=== PATIENT | female | born 1930 | race Caucasian/White ===

== ENCOUNTER 2018-04-28 16:44 | Inpatient (IN) ==
--- NOTE | 2018-04-28 16:49 | Emergency Department Note ---
ED Disposition Clinical Impression: CRI (chronic renal insufficiency), Elevated troponin CHF (congestive heart failure) Qualifiers: Heart failure type: unspecified Heart failure chronicity: acute on chronic Qualified Code(s): I50.9 - Heart failure, unspecified Disposition: Admitted as Observation Condition on Discharge: Good - Critical Care Critical Care Time: No Attestation: On 04/28/18, the high probability of a clinically significant, sudden or life threatening deterioration of the following system(s) required my full and direct attention, intervention and personal management. The time I documented below is in addition to time spent performing reported procedures but includes the following listed in this critical care notation. Medical Decision Making - Medical Records Medical records reviewed: Yes: I reviewed the patient's medical records. - [place] Inquiry Pt receiving controlled substance: No [place] was queried for this patient: No Vital Signs: 04/28/18 16:49 04/28/18 17:14 04/28/18 18:00 Temperature 98.4 F Temperature Source Oral Pulse Rate Pulse Rate [Left Radial] 108 H 111 H 109 H Respiratory Rate 20 20 18 Blood Pressure [Right Arm] 180/96 180/98 Blood Pressure Mean [Right Arm] 124 125 Blood Pressure Source [Right Arm] Automatic Cuff Automatic Cuff Blood Pressure Position [Right Arm] Standing Sitting 02 Sat by Pulse Oximetry 95 96 98 Oxygen Delivery Method Nasal Cannula Room Air Room Air Oxygen Flow Rate (LPM) 2 04/28/18 18:12 04/28/18 18:18 04/28/18 18:19 Temperature Temperature Source Pulse Rate 110 H 107 H Pulse Rate [Left Radial] Respiratory Rate Blood Pressure [Right Arm] 183/87 Blood Pressure Mean [Right Arm] 119 Blood Pressure Source [Right Arm] Automatic Cuff Blood Pressure Position [Right Arm] Sitting 02 Sat by Pulse Oximetry Oxygen Delivery Method Oxygen Flow Rate (LPM) 04/28/18 18:30 04/28/18 18:58 Temperature Temperature Source Pulse Rate Pulse Rate [Left Radial] 109 H 109 H Respiratory Rate 18 20 Blood Pressure [Right Arm] 177/81 177/81 Blood Pressure Mean [Right Arm] 113 113 Blood Pressure Source [Right Arm] Automatic Cuff Automatic Cuff Blood Pressure Position [Right Arm] Sitting Sitting 02 Sat by Pulse Oximetry 96 97 Oxygen Delivery Method Nasal Cannula Nasal Cannula Oxygen Flow Rate (LPM) 2 2 - Lab Data Lab results reviewed: Yes: I reviewed the patient's lab results. Lab Results 04/28/18 17:43: WBC 6.3, RBC 3.93 L D, Hgb 11.3 L, Hct 36.7 L, MCV 93.2, MCH 28.7, MCHC 30.8 L, RDW 15.2, Plt Count 205, MPV 7.4, Neut % (Auto) 73.7, Lymph % (Auto) 14.4, [place] % (Auto) 5.2, Eos % (Auto) 6.2, Baso % (Auto) 0.5, Neut # ( Auto) 4.7, Lymph # (Auto) 0.9, [place] # (Auto) 0.3, Eos # (Auto) 0.4, Baso # (Auto ) 0.0 04/28/18 17:43: Sodium 142, Potassium 5.4 H, Chloride 107, Carbon Dioxide 22, Anion Gap 18.4 H, BUN 70 H, Creatinine 6.21 H, Estimated Creat Clear 8, Estimated GFR 6 L*, Est GFR ( Amer) 8 L*, Glucose 214 H, Calcium 8.9, Troponin I 1.42 H 04/28/18 17:43: Lactic Acid 0.7 Result diagrams: 04/28/18 17:43 04/28/18 17:43 Orders (Tests/Meds): ED MEDICATIONS Generic Name Dose Route Start Last Admin Trade Name Freq PRN Reason Stop Dose Admin Calcium Gluconate 1,000 mg/ 35 mls @ 100 mls/hr 04/28/18 19:08 Sodium Chloride IV 04/28/18 19:28 ONCE ONE Sodium Polystyrene Sulfonate 15 gm 04/28/18 21:00 Kayexalate 15gm/60ml Bottle PO 05/28/18 20:59 BID ITALO Discontinued Medications Generic Name Dose Route Start Last Admin Trade Name Freq PRN Reason Stop Dose Admin Aspirin 325 mg 04/28/18 18:30 04/28/18 18:48 Aspirin 325mg Tablet PO 04/28/18 18:31 325 mg ONCE ONE Administration Methylprednisolone Sodium Succinate 125 mg 04/28/18 17:27 04/28/18 17:33 Solu-Medrol 125mg/2ml Vial IV 04/28/18 17:28 125 mg ONCE ONE Administration ORDERS Category Date Time Status XR chest portable Stat Exams 04/28/18 17:10 Taken Troponin I Stat Lab 04/28/18 17:43 Ordered Blood Culture Stat Micro 04/28/18 17:43 Received ECG Request by /Narcisa Stat Y 04/28/18 17:10 Ordered - Radiology Data #1 Image(s): Chest Image Reviewed: Yes I reviewed the patient's radiology image Preliminary Findings: Abnormal (acute CHF; CM) - ECG Data Tracing #1 I reviewed this ECG and interpreted as documented below: ECG initial impression date: 04/28/18 ECG initial impression time: 17:55 ECG normal with no acute: arrhythmias, ischemia, conduction abnormalities, chamber hypertrophy Normal Sinus Rhythm: Yes Arrhythmias present: sinus tach - Physician Consults Physician Consulted: Cardiology instructional services librarian Time: 18:25 (; info relayed to Dr. Cabrera who recommends admission and will follow) Reason -: Cardiology Eval/Care Additional Consult: Dr. Handy Time: 18:31 Reason -: Admission Additional Consult: Dr. Handy Time: 19:09 (reviewed renal function w Dr Handy; states hospice patient due to CRI ok to give calcium and kayexalate now and hold Lasix) Reason -: Pt condition - Reevaluation(s) Time: 18:26 (feeling better s/p duoneb) Resp/SOB HPI - General Chief Complaint: Shortness of Breath/Dyspnea Stated Complaint: SoA Time Seen by Provider: 04/28/18 16:52 Mode of Arrival: Wheelchair Source of Information: Patient Limitations: No Limitations - History of Present Illness Pt with hx CHF, hx blood transfusions for chronic anemia, became increasingly SOB during transfusion today. She states she has had a dry cough for the last several days, no chest pain, no palpitations, no leg pain. She arrives a little SOB with some wheezing. Transfusion RN states patient had Lasix IV [facility] and has not yet had any UOP but used a Depends. She last had a neb at the [facility] this AM. Complaint: shortness of breath Context: other Severity: mild Consistency/Duration: constant Relieving factors: oxygen Exacerbating factors: lying flat, exertion Known history of: congestive heart failure Associated symptoms: denies other symptoms Treatment prior to arrival: oxygen, other - Related Data Home Medications Medication Instructions Recorded Confirmed Acetaminophen [Acetaminophen 325mg 650 mg PO Q6HP PRN 11/21/17 04/28/18 tab] Amlodipine Besylate [Norvasc 2.5mg 5 mg PO BID 11/21/17 04/28/18 tablet] Atorvastatin Calcium [Atorvastatin 80 mg PO HS 11/21/17 04/28/18 80mg Tab] Benzonatate [Tessalon Perle 100mg 200 mg PO Q6HP PRN 11/21/17 04/28/18 Cap] Bisacodyl [Dulcolax 10mg Supp] 10 mg RC DAILYP PRN 11/21/17 04/28/18 Docusate Sodium [Colace] 100 mg PO BID 11/21/17 04/28/18 Doxazosin Mesylate [Doxazosin 1mg 1 mg PO DAILY 11/21/17 04/28/18 Tab] Doxepin HCl [[place]inequan 25mg capsule] 25 mg PO HS 11/21/17 04/28/18 Furosemide [Lasix 40mg tab] 40 mg PO QODHS 11/21/17 04/28/18 Hydralazine HCl [Hydralazine HCl 25 mg PO TID 11/21/17 04/28/18 25mg Tablet] Hydrocortisone Acetate [Anusol HC 30 mg RC TIDP PRN 11/21/17 04/28/18 30mg Supp] Insulin Aspart [Novolog] 100 unit SQ ACHS 11/21/17 04/28/18 Ipratropium/Albuterol Sulfate 3 ml IH QID 11/21/17 04/28/18 [Albut-Ipratropium 2.5mg-0.5mg/3 ml] Isosorbide Dinitrate [Isordil] 40 mg PO BID 11/21/17 04/28/18 Levothyroxine Sodium 25 mcg PO DAILY 11/21/17 04/28/18 [Levothyroxine 25mcg (0.025mg) Tab] Magnesium Hydroxide [Milk of 400 mg PO DAILYP PRN 11/21/17 04/28/18 Magnesia 30mL Udc] Metoprolol [place]/Hydrochlorothiaz 25 mg PO BID 11/21/17 04/28/18 [Metoprolol ER-Hctz 50-12.5 mg] Multivitamin/Iron/Folic Acid 1 each PO DAILY 11/21/17 04/28/18 [Centrum Complete Multivit Tab] Ondansetron HCl [Zofran 4mg Tab] 4 mg PO Q8HP PRN 11/21/17 04/28/18 Oxycodone HCl [OxyIR 5mg tablet] 2.5 mg PO Q6HP PRN 11/21/17 04/28/18 Pantoprazole Sodium [Protonix 40mg 40 mg PO DAILY 11/21/17 04/28/18 tablet] Pregabalin [Pregabalin 50mg 50 mg PO HS 11/21/17 04/28/18 Capsule] Venlafaxine HCl [Effexor Xr] 150 mg PO HS 11/21/17 04/28/18 cloNIDine HCl [Catapres] 0.1 mg PO TID 11/21/17 04/28/18 guaiFENesin [Robitussin 200mg/10mL 200 mg PO Q4HP PRN 11/21/17 04/28/18 Syrup Udc] metOLazone [metOLazone 2.5mg 2.5 mg PO QODHS 11/21/17 04/28/18 Tablet] Allergies Allergy/AdvReac Type Severity Reaction Status Date / Time Iodinated Contrast Media - Allergy Intermediate I-HIVES Verified 01/30/18 09:51 Oral and [Iodinated Contrast Media - IV Dye] meclizine Allergy Intermediate I-HIVES Verified 01/30/18 09:51 acarbose [From PRECOSE] Allergy Unknown Verified 01/30/18 09:51 ciprofloxacin [From CIPRO] Allergy Unknown Verified 01/30/18 09:51 codeine [CODEINE] Allergy Unknown Verified 01/30/18 09:51 fesoterodine [From Toviaz] Allergy Unknown DRY MOUTH Verified 01/30/18 09:51 nylidrin Allergy Unknown Verified 01/30/18 09:51 penicillin G Allergy Unknown Verified 01/30/18 09:51 Penicillins Allergy Unknown Verified 01/30/18 09:51 phenyltoloxamine Allergy Unknown Verified 01/30/18 09:51 [From STAFLEX] sulfamethoxazole Allergy Unknown Verified 01/30/18 09:51 [From BACTRIM] tramadol [From ULTRAM] Allergy Unknown Verified 01/30/18 09:51 trimethoprim [From BACTRIM] Allergy Unknown Verified 01/30/18 09:51 [facility] History I have reviewed the patient's past medical history: Yes Medical History: Reports:: Congestive Heart Failure, Diabetes Mellitus Type 2 Denies:: Cancer, Diabetes Mellitus Type 1, MRSA Other Medical History: Reports: Anemia Amputation: No - Social History Smoking Status: Never smoker Alcohol Intake: never ROS Obtained: Yes All systems reviewed & no additional complaints Physical Exam - General General appearance: alert, in no apparent distress - Head Head exam: atraumatic, normocephalic - Eye Eye exam: Present: normal appearance, PERRL - ENT ENT exam: Present: normal exam, normal oropharynx - Neck Neck exam: Present: normal inspection, full ROM - Chest Chest inspection: Present: normal inspection, symmetric chest wall rise. Absent : tenderness - Respiratory Respiratory exam: Present: normal lung sounds bilaterally, respiratory distress , wheezes, other (tachypneic, mild wheezing) - Cardiovascular Cardiovascular exam: Present: regular rate, normal rhythm. Absent: JVD - Abdominal Exam Abdominal exam: Present: soft, normal bowel sounds. Absent: distention, tenderness, guarding - Extremities Exam Extremities exam: Present: normal inspection, full ROM, normal capillary refill. Absent: joint swelling, calf tenderness - Back Exam Back exam: Present: full ROM - Neurological Exam Neurological exam: Present: alert, oriented X3, CN II-XII intact. Absent: motor sensory deficit - Psychiatric Psychiatric exam: Present: normal affect, normal mood - Skin Skin exam: Present: warm, dry, intact, pallor - Lymphatic Lymphatic Findings: no adenopathy
[2018-04-28 17:56] LABS: Basophils % 0.5 % (0.1-2.0); Eosinophils # 0.4 K/mm3 (0.0-0.4); Eosinophils % 6.2 % (0.1-12.0); Hematocrit 36.7 % (37.0-47.0); Hemoglobin 11.3 g/dL (12.2-16.2); Lymphocytes # 0.9 K/mm3 (0.7-4.5); Lymphocytes % 14.4 K/mm3 (10-50); Mean Corpuscular HGB Conc 30.8 g/dL (31.8-35.4); Mean Corpuscular Hemoglobin 28.7 pg (27.0-31.2); Mean Corpuscular Volume 93.2 fl (81-99); Mean Platelet Volume 7.4 fl (7.4-10.4); Monocytes # 0.3 K/mm3 (0.1-1.0); Monocytes % 5.2 % (1.7-9.3); Neutrophils # 4.7 K/mm3 (1.8-7.8); Neutrophils % 73.7 % (37.0-80.0); Platelet Count 205 K/mm3 (142-424); Red Blood Count 3.93 M/mm3 (4.20-5.40); Red Cell Distribution Width 15.2 % (11.5-17.5); White Blood Count 6.3 K/mm3 (4.8-10.8)
[2018-04-28 18:23] LABS: Anion Gap 18.4 mEq/L (5-15); Calcium 8.9 mg/dL (8.5-10.1); Potassium 5.4 mmoL/L (3.5-5.1)
[2018-04-28 20:07] LABS: Microscopic, Urine URINE MICROSCOPIC (MICROSCOPIC)
[2018-04-28 20:10] LABS: Appearance,Urine CLEAR (Clear); Bilirubin,Urine Negative (Negative); Blood, Urine Negative (Negative); Color,Urine YELLOW (Yellow); Glucose,Urine (UA) Negative (Negative); Ketones,Urine Negative (Negative); Leukocyte Esterase,Urine Negative (Negative); Protein,Urine 2+ (Negative); Specific Gravity, Urine 1.015 (1.005-1.030); Urobilinogen,Urine 0.2 EU/dl (0.2)
[2018-04-28 21:03] LABS: RBC,Urine Occasional #/hpf (0-3); Squamous Epithelial Cell,Urine Occasional #/hpf (0-5)
[2018-04-29 06:15] LABS: Eosinophils % 0.7 % (0.1-12.0); Hematocrit 31.3 % (37.0-47.0); Lymphocytes # 0.3 K/mm3 (0.7-4.5); Lymphocytes % 8.7 K/mm3 (10-50); Mean Corpuscular HGB Conc 30.9 g/dL (31.8-35.4); Mean Corpuscular Hemoglobin 28.7 pg (27.0-31.2); Mean Platelet Volume 8.1 fl (7.4-10.4); Monocytes # 0.1 K/mm3 (0.1-1.0); Monocytes % 2.4 % (1.7-9.3); Neutrophils # 2.9 K/mm3 (1.8-7.8); Neutrophils % 88.1 % (37.0-80.0); Platelet Count 158 K/mm3 (142-424); Red Blood Count 3.37 M/mm3 (4.20-5.40); Red Cell Distribution Width 15.5 % (11.5-17.5); White Blood Count 3.3 K/mm3 (4.8-10.8)
[2018-04-29 06:18] LABS: Anion Gap 15.7 mEq/L (5-15); Calcium 8.6 mg/dL (8.5-10.1); Potassium 4.7 mmoL/L (3.5-5.1)
[2018-04-29 06:24] LABS: Hemoglobin 9.7 g/dL (12.2-16.2)
--- NOTE | 2018-04-29 08:32 | Pharmacy Consult Notes ---
[facility] Pharmacy VTE Monitoring - Patient Demographics Admission date: 04/29/18 Report Date: 04/29/18 Time: 08:32 Allergies/Adverse Reactions: Patient Allergies Iodinated Contrast Media - Oral and [Iodinated Contrast Media - IV Dye] Allergy (Intermediate, Verified 01/30/18 09:51) I-HIVES meclizine Allergy (Intermediate, Verified 01/30/18 09:51) I-HIVES acarbose [From PRECOSE] Allergy (Unknown, Verified 01/30/18 09:51) ciprofloxacin [From CIPRO] Allergy (Unknown, Verified 01/30/18 09:51) codeine [CODEINE] Allergy (Unknown, Verified 01/30/18 09:51) fesoterodine [From Toviaz] Allergy (Unknown, Verified 01/30/18 09:51) DRY MOUTH nylidrin Allergy (Unknown, Verified 01/30/18 09:51) penicillin G Allergy (Unknown, Verified 01/30/18 09:51) Penicillins Allergy (Unknown, Verified 01/30/18 09:51) phenyltoloxamine [From STAFLEX] Allergy (Unknown, Verified 01/30/18 09:51) sulfamethoxazole [From BACTRIM] Allergy (Unknown, Verified 01/30/18 09:51) tramadol [From ULTRAM] Allergy (Unknown, Verified 01/30/18 09:51) trimethoprim [From BACTRIM] Allergy (Unknown, Verified 01/30/18 09:51) Height: 1.68 m Weight: 70.76 kg Patient Problems: Current Active Problems CHF (congestive heart failure) (Acute) CRI (chronic renal insufficiency) (Acute) Elevated troponin (Acute) - VTE Risk Labs: VTE Related Lab Results Hgb 9.7 g/dL (12.2-16.2) L D 04/29/18 06:05 Hct 31.3 % (37.0-47.0) L 04/29/18 06:05 Plt Count 158 K/mm3 (142-424) 04/29/18 06:05 BUN 76 mg/dL (7-18) H 04/29/18 06:05 Creatinine 6.29 mg/dL (0.55-1.02) H 04/29/18 06:05 Estimated Creat Clear 7 mL/min (0-300) 04/29/18 06:05 Was VTE Risk Assessment Performed: Yes VTE Risk Level: Low Risk Clinical Trial Participant: No - Prophylaxis VTE Prophylaxis Ordered?: Yes Types of VTE Prophylaxis: TEDS Knee High
--- NOTE | 2018-04-29 08:34 | History & Physical Report ---
*Admission Date: 04/28/18 <Monique Hannon - 04/29/18 08:41> *Chief complaint: shortness of breath <Monique Hannon - 04/29/18 08:41> *History of present illness: Further important to her history is that she is enrolled in Hospice due to end- stage renal failure which is the basis of her chronic anemia. Her most recent Hgb at [facility] was 7.2 and she requested a blood transfusion but she was getting weak and not getting around very well. <Joe Handy - 04/29/18 09:23> Ms. Espinoza is an 87yo female patient of [facility] with a hx of CHF, blood transfusions for chronic anemia, DM, HTN, HLP, and GERD who became increasingly SOB during a transfusion yesterday. She told the ER physician she had had a dry cough for the last several days, no chest pain, no palpitations, no leg pain. She arrived in the ER a little SOB with some wheezing. 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 She had a neb at the [place] before arrival to the ER yesterday. Today the patient is very fatigued and slightly confused. She denies any pain. She states she is no longer short of breath. She does say she is tired. <Monique Hannon - 04/29/18 08:41> [facility] History Medical History: Reports:: Congestive Heart Failure, Diabetes Mellitus Type 2, Gastroesophageal Reflux Disease(GERD), Hyperlipidemia, Hypertension Denies:: Cancer, Diabetes Mellitus Type 1, MRSA <Monique Hannon 04/29/18 08:41> Other Medical History: Reports: Anemia, Arthritis <Monique Hannon 04/29/18 08 :41> Laterality Cases: Bilateral: Cataract <Monique Hannon 04/29/18 08:41> Other Surgeries: Yes: Appendectomy, Cardiac Catheterization, Cholecystectomy, Colonoscopy, Hysterectomy-Total <Monique Hannon 04/29/18 08:41> Amputation: No <Monique Hannon 04/29/18 08:41> Fractures: No <Monique Hannon 04/29/18 08:41> - *Social History Educational Level: Attended High School <Monique Hannon 04/29/18 08:41> Smoking Status: Never smoker <RiddhiMonique Manjeet 04/29/18 08:41> Alcohol Intake: never <RiddhiMonique 04/29/18 08:41> Occupational Status: retired <Monique Hannon 04/29/18 08:41> Housing: [facility] <DrumaeMonique 04/29/18 08:41> - Psychiatric History Expresses thoughts of harming self/others: None <Monique Hannon 04/29/18 08: 41> Suicide Plan Description: No Plan <RiddhiMonique 04/29/18 08:41> *Family Hx:: Anemia, Cancer, Hypertension <Monique Hannon 04/29/18 08:41> Review of Systems - Constitutional Reports fatigue, Reports weakness <Monique Hannon 04/29/18 08:41> - Eyes Denies blurry vision, Denies double vision <Monique Hannon 04/29/18 08:41> - ENT Denies nasal congestion, Denies sore throat <Monique Hannon 04/29/18 08:41> - *Cardiovascular Denies chest pain, Denies shortness of breath <Monique Hannon 04/29/18 08:41> - *Respiratory Reports cough, Denies shortness of breath <Monique Hannon 04/29/18 08:41> - *Gastrointestinal Denies abdominal pain, Denies loose stools, Denies nausea, Denies vomiting < Monique Hannon 04/29/18 08:41> - *Genitourinary Denies difficulty urinating, Denies painful urination <Monique Hannon 08:41> - *Musculoskeletal Denies joint pain <Monique Hannon 04/29/18 08:41> - *Neurologic Reports weakness, Denies headache(s) <Monique Hannon 04/29/18 08:41> Meds Home Medications Medication Instructions Recorded Confirmed Type Acetaminophen [Acetaminophen 325mg 650 mg PO Q4HP PRN 11/21/17 04/29/18 History tab] Atorvastatin Calcium [Atorvastatin 80 mg PO HS 11/21/17 04/29/18 History 80mg Tab] Benzonatate [Tessalon Perle 100mg 200 mg PO Q6HP PRN 11/21/17 04/29/18 History Cap] Bisacodyl [Dulcolax 10mg Supp] 10 mg RC DAILYP PRN 11/21/17 04/29/18 History Docusate Sodium [Colace] 100 mg PO BID 11/21/17 04/29/18 History Doxazosin Mesylate [Doxazosin 1mg 1 mg PO DAILY 11/21/17 04/29/18 History Tab] Doxepin HCl [Sinequan 25mg capsule] 25 mg PO HS 11/21/17 04/29/18 History Hydralazine HCl [Hydralazine HCl 25 mg PO TID 11/21/17 04/29/18 History 25mg Tablet] Hydrocortisone Acetate [Anusol HC 30 mg RC TIDP PRN 11/21/17 04/29/18 History 30mg Supp] Insulin Aspart [Novolog] 0 unit SQ AC 11/21/17 04/29/18 History Isosorbide Dinitrate [Isordil] 40 mg PO BID 11/21/17 04/29/18 History Levothyroxine Sodium 25 mcg PO DAILY 11/21/17 04/29/18 History [Levothyroxine 25mcg (0.025mg) Tab] Multivitamin/Iron/Folic Acid 1 each PO DAILY 11/21/17 04/29/18 History [Centrum Complete Multivit Tab] Ondansetron HCl [Zofran 4mg Tab] 4 mg PO TIDP PRN 11/21/17 04/29/18 History Oxycodone HCl [OxyIR 5mg tablet] 2.5 mg PO Q6HP PRN 11/21/17 04/29/18 History Pantoprazole Sodium [Protonix 40mg 40 mg PO DAILY 11/21/17 04/29/18 History tablet] Pregabalin [Pregabalin 50mg 50 mg PO HS 11/21/17 04/29/18 History Capsule] cloNIDine HCl [Catapres] 0.1 mg PO TID 11/21/17 04/29/18 History guaiFENesin [Robitussin 200mg/10mL 200 mg PO Q4HP PRN 11/21/17 04/29/18 History Syrup Udc] metOLazone [metOLazone 2.5mg 2.5 mg PO QODHS 11/21/17 04/29/18 History Tablet] Amlodipine Besylate [Norvasc 5mg 5 mg PO BID 04/29/18 04/29/18 History tablet] Carboxymethylcellulose Sodium 1 drop OP Q2HP PRN 04/29/18 04/29/18 History [Thera Tears] Dextrose [Glutose 15] 37.5 gm PO DAILYP PRN 04/29/18 04/29/18 History Furosemide [Lasix 20mg tab] 20 mg PO Q48H 04/29/18 04/29/18 History Insulin Degludec [Tresiba 6 unit SQ DAILY 04/29/18 04/29/18 History Flextouch U-200] Ipratropium/Albuterol Sulfate 3 ml IH TID 04/29/18 04/29/18 History [Iprat-Albut 0.5-3(2.5) mg/3 ml] Lactulose [Lactulose 10gm/15ml 30 ml PO DAILY 04/29/18 04/29/18 History Oral Soln] Magnesium Hydroxide [Milk of 400 mg PO DAILYP PRN 04/29/18 04/29/18 History Magnesia] Metoprolol Succinate 25 mg PO BID 04/29/18 04/29/18 History Venlafaxine HCl [Effexor XR 75mg 75 mg PO HS 04/29/18 04/29/18 History capsule] hydrOXYzine HCl [Hydroxyzine HCl] 10 mg PO Q6HP PRN 04/29/18 04/29/18 History <Joe Handy - 04/29/18 09:23> Allergies Allergy/AdvReac Type Severity Reaction Status Date / Time Iodinated Contrast Media - Allergy Intermediate I-HIVES Verified 01/30/18 09:51 Oral and [Iodinated Contrast Media - IV Dye] meclizine Allergy Intermediate I-HIVES Verified 01/30/18 09:51 acarbose [From PRECOSE] Allergy Unknown Verified 01/30/18 09:51 ciprofloxacin [From CIPRO] Allergy Unknown Verified 01/30/18 09:51 codeine [CODEINE] Allergy Unknown Verified 01/30/18 09:51 fesoterodine [From Toviaz] Allergy Unknown DRY MOUTH Verified 01/30/18 09:51 nylidrin Allergy Unknown Verified 01/30/18 09:51 penicillin G Allergy Unknown Verified 01/30/18 09:51 Penicillins Allergy Unknown Verified 01/30/18 09:51 phenyltoloxamine Allergy Unknown Verified 01/30/18 09:51 [From STAFLEX] sulfamethoxazole Allergy Unknown Verified 01/30/18 09:51 [From BACTRIM] tramadol [From ULTRAM] Allergy Unknown Verified 01/30/18 09:51 trimethoprim [From BACTRIM] Allergy Unknown Verified 01/30/18 09:51 <OleJoe Jose R - 04/29/18 09:23> Exam Vital signs and Labs for Last 24 Hours: Temp Pulse Resp BP Pulse Ox 98.7 F 110 H 20 130/60 96 04/29/18 07:47 04/29/18 08:00 04/29/18 07:47 04/29/18 07:47 04/29/18 07:47 Laboratory Results - last 24 hr 04/28/18 17:00: Urine Color Yellow, Urine Appearance Clear, Urine pH 7.0, Ur Specific [place] 1.015, Urine Protein 2+, Urine Glucose (UA) Negative, Urine Ketones Negative, Urine Blood Negative, Urine Nitrate Negative, Urine Bilirubin Negative, Urine Urobilinogen 0.2, Ur Leukocyte Esterase Negative, Urine RBC Occasional, Urine WBC None, Ur Squamous Epith Cells Occasional, Urine Bacteria None 04/28/18 17:43: WBC 6.3, RBC 3.93 L D, Hgb 11.3 L, Hct 36.7 L, MCV 93.2, MCH 28.7, MCHC 30.8 L, RDW 15.2, Plt Count 205, MPV 7.4, Neut % (Auto) 73.7, Lymph % (Auto) 14.4, [place] % (Auto) 5.2, Eos % (Auto) 6.2, Baso % (Auto) 0.5, Neut # ( Auto) 4.7, Lymph # (Auto) 0.9, [place] # (Auto) 0.3, Eos # (Auto) 0.4, Baso # (Auto ) 0.0 04/28/18 17:43: Sodium 142, Potassium 5.4 H, Chloride 107, Carbon Dioxide 22, Anion Gap 18.4 H, BUN 70 H, Creatinine 6.21 H, Estimated Creat Clear 8, Estimated GFR 6 L*, Est GFR ( Amer) 8 L*, Glucose 214 H, Calcium 8.9, Troponin I 1.42 H 04/28/18 17:43: Lactic Acid 0.7 04/28/18 19:59: Troponin I 1.31 H 04/28/18 21:34: POC Glucose 231 H 04/28/18 22:57: Troponin I 1.03 H 04/29/18 04:52: POC Glucose 255 H 04/29/18 06:05: WBC 3.3 L D, RBC 3.37 L, Hgb 9.7 L D, Hct 31.3 L, MCV 93.0, MCH 28.7, MCHC 30.9 L, RDW 15.5, Plt Count 158, MPV 8.1, Neut % (Auto) 88.1 H, Lymph % (Auto) 8.7 L, [place] % (Auto) 2.4, Eos % (Auto) 0.7, Baso % (Auto) 0.0 L, Neut # (Auto) 2.9, Lymph # (Auto) 0.3 L, [place] # (Auto) 0.1, Eos # (Auto) 0.0, Baso # (Auto) 0.0 04/29/18 06:05: Sodium 142, Potassium 4.7, Chloride 108 H, Carbon Dioxide 23, Anion Gap 15.7 H, BUN 76 H, Creatinine 6.29 H, Estimated Creat Clear 7, Estimated GFR 6 L*, Est GFR ( Amer) 8 L*, Glucose 265 H D, Calcium 8.6 04/29/18 06:30: POC Glucose 258 H <OleJoe - 04/29/18 09:23> Temp Pulse Resp BP Pulse Ox 98.7 F 106 H 20 130/60 96 04/29/18 07:47 04/29/18 07:47 04/29/18 07:47 04/29/18 07:47 04/29/18 07:47 Laboratory Results - last 24 hr 04/28/18 17:00: Urine Color Yellow, Urine Appearance Clear, Urine pH 7.0, Ur Specific [place] 1.015, Urine Protein 2+, Urine Glucose (UA) Negative, Urine Ketones Negative, Urine Blood Negative, Urine Nitrate Negative, Urine Bilirubin Negative, Urine Urobilinogen 0.2, Ur Leukocyte Esterase Negative, Urine RBC Occasional, Urine WBC None, Ur Squamous Epith Cells Occasional, Urine Bacteria None 04/28/18 17:43: WBC 6.3, RBC 3.93 L D, Hgb 11.3 L, Hct 36.7 L, MCV 93.2, MCH 28.7, MCHC 30.8 L, RDW 15.2, Plt Count 205, MPV 7.4, Neut % (Auto) 73.7, Lymph % (Auto) 14.4, [place] % (Auto) 5.2, Eos % (Auto) 6.2, Baso % (Auto) 0.5, Neut # ( Auto) 4.7, Lymph # (Auto) 0.9, [place] # (Auto) 0.3, Eos # (Auto) 0.4, Baso # (Auto ) 0.0 04/28/18 17:43: Sodium 142, Potassium 5.4 H, Chloride 107, Carbon Dioxide 22, Anion Gap 18.4 H, BUN 70 H, Creatinine 6.21 H, Estimated Creat Clear 8, Estimated GFR 6 L*, Est GFR ( Amer) 8 L*, Glucose 214 H, Calcium 8.9, Troponin I 1.42 H 04/28/18 17:43: Lactic Acid 0.7 04/28/18 19:59: Troponin I 1.31 H 04/28/18 21:34: POC Glucose 231 H 04/28/18 22:57: Troponin I 1.03 H 04/29/18 04:52: POC Glucose 255 H 04/29/18 06:05: WBC 3.3 L D, RBC 3.37 L, Hgb 9.7 L D, Hct 31.3 L, MCV 93.0, MCH 28.7, MCHC 30.9 L, RDW 15.5, Plt Count 158, MPV 8.1, Neut % (Auto) 88.1 H, Lymph % (Auto) 8.7 L, [place] % (Auto) 2.4, Eos % (Auto) 0.7, Baso % (Auto) 0.0 L, Neut # (Auto) 2.9, Lymph # (Auto) 0.3 L, Harris # (Auto) 0.1, Eos # (Auto) 0.0, Baso # (Auto) 0.0 04/29/18 06:05: Sodium 142, Potassium 4.7, Chloride 108 H, Carbon Dioxide 23, Anion Gap 15.7 H, BUN 76 H, Creatinine 6.29 H, Estimated Creat Clear 7, Estimated GFR 6 L*, Est GFR ( Amer) 8 L*, Glucose 265 H D, Calcium 8.6 04/29/18 06:30: POC Glucose 258 H <Monique Hannon 04/29/18 08:41> I & O for Last 24 hours: Intake & Output 04/26/18 04/27/18 04/28/18 04/29/18 11:59 11:59 11:59 11:59 Intake Total 150 / 150 Output Total 1725 / 1725 Balance -1575 / -1575 Weight 156 lb <Joe Handy - 04/29/18 09:23> Intake & Output 04/26/18 04/27/18 04/28/18 04/29/18 11:59 11:59 11:59 11:59 Intake Total 150 / 150 Output Total 1725 / 1725 Balance -1575 / -1575 Weight 156 lb <Monique Hannon 04/29/18 08:41> - Constitutional no acute distress (very fatigued and slightly confused) <Monique Hannon 04/29 08:41> - *Routine HEENT Exam Head: Present: atraumatic <Monique Hannon 04/29/18 08:41> Eye: Present: EOMI <Monique Hannon 04/29/18 08:41> ENT: Present: mucous membranes dry <Monique Hannon 04/29/18 08:41> - *Routine Neck Exam Present: supple, full ROM <Monique Hannon 04/29/18 08:41> - *Routine Respiratory Exam Present: crackles (faint bibasilar rales) <Monique Hannon 04/29/18 08:41> - *Routine Cardiovascular Exam Present: RRR <Monique Hannon 04/29/18 08:41> - *Routine Abdominal Exam Present: soft, normoactive bowel sounds. Absent: tenderness <Monique Hannon 04/29/18 08:41> - *Routine Extremities Exam Present: edema (trace) <Monique Hannon 04/29/18 08:41> - *Routine Skin Exam Present: pallor <Monique Hannon - 04/29/18 08:41> - *Routine Neurological Exam Present: altered mental status <Monique Hannon - 04/29/18 08:41> H&P: Result - Labs Labs: Short CBC 04/28/18 04/29/18 Range/Units 17:43 06:05 WBC 6.3 3.3 L D (4.8-10.8) K/mm3 Hgb 11.3 L 9.7 L D (12.2-16.2) g/dL Hct 36.7 L 31.3 L (37.0-47.0) % Plt Count 205 158 (142-424) K/mm3 BMP 04/28/18 04/29/18 17:43 06:05 Sodium 142 142 Potassium 5.4 H 4.7 Chloride 107 108 H Carbon Dioxide 22 23 BUN 70 H 76 H Creatinine 6.21 H 6.29 H Glucose 214 H 265 H D Calcium 8.9 8.6 Cardiac Enzymes 04/28/18 04/28/18 04/28/18 Range/Units 17:43 19:59 22:57 Troponin I 1.42 H 1.31 H 1.03 H (0.00-0.06) ng/ml Urine 04/28/18 Range/Units 17:00 Urine Color Yellow (Yellow) Urine Appearance Clear (Clear) Urine pH 7.0 (5.0-8.5) Ur Specific [place] 1.015 (1.005-1.030) Urine Protein 2+ (Negative) Urine Glucose (UA) Negative (Negative) <Joe Handy - 04/29/18 09:23> <Monique Hannon - 04/29/18 08:41> - Impressions CXR 1.Bilateral lobe pneumonia with effusions left more extensive than right 2. Cardiomegaly with chronic CHF. 3. Prominence of the right hilum <Monique Hannon - 04/29/18 08:41> Assessment and Plan (1) CHF (congestive heart failure) Current visit: Yes Status: Acute Qualifiers: Heart failure type: unspecified Heart failure chronicity: acute on chronic Qualified Code(s): I50.9 - Heart failure, unspecified Category: Medical Code(s): I50.9 - Heart failure, unspecified (2) CRI (chronic renal insufficiency) Current visit: Yes Status: Acute Category: Medical Code(s): N18.9 - Chronic kidney disease, unspecified (3) Elevated troponin Current visit: Yes Status: Acute Category: Medical Code(s): R74.8 - Abnormal levels of other serum enzymes (4) Anemia, chronic renal failure Current visit: No Status: Acute Category: Medical Code(s): N18.9 - Chronic kidney disease, unspecified; D63.1 - Anemia in chronic kidney disease (5) Chronic uremia Current visit: No Status: Acute Category: Medical Code(s): N18.9 - Chronic kidney disease, unspecified (6) Malaise Current visit: No Status: Acute Category: Medical Code(s): R53.81 - Other malaise <Monique Hannon - 04/29/18 08:31> (1) CHF (congestive heart failure) Current visit: Yes Status: Acute Qualifiers: Heart failure type: unspecified Heart failure chronicity: acute on chronic Qualified Code(s): I50.9 - Heart failure, unspecified Category: Medical Code(s): I50.9 - Heart failure, unspecified (2) Altered mental status Current visit: Yes Status: Acute Category: Medical Code(s): R41.82 - Altered mental status, unspecified (3) Chronic renal disease, stage 5, glomerular filtration rate (GFR) less than or equal to 15 mL/min/1.73 square meter Current visit: Yes Status: Acute Category: Medical Code(s): N18.5 - Chronic kidney disease, stage 5 (4) Elevated troponin Current visit: Yes Status: Acute Category: Medical Code(s): R74.8 - Abnormal levels of other serum enzymes (5) Chronic uremia Current visit: No Status: Acute Category: Medical Code(s): N18.9 - Chronic kidney disease, unspecified (6) Anemia in end-stage renal disease Current visit: Yes Status: Acute Category: Medical Code(s): N18.6 - End stage renal disease; D63.1 - Anemia in chronic kidney disease <Joe Handy - 04/29/18 09:23> - Assessment and plan all Dx Assessment and Plan for all problems:: Patient seen and examined. She is much more confused this morning. Lungs sound relatively clear. Elevated troponins are the basis of CHF from the blood transfusion and are trending downward. Will hold some of her maintenance meds that may cause altered mental status. Can not r/o TIA/CVA but not able to do CT with contrast due to renal function. <Joe Handy - 04/29/18 09:23> Elevated troponin likely d/t CHF. Will discuss further care with Dr. Handy. <Monique Hannon - 04/29/18 08:41>
[2018-04-29 11:27] LABS: Lymphocytes % 8 % (10-50); Neutrophils % 92 % (42-76); Total Cells Counted 100
[2018-04-29 11:28] LABS: RBC Morphology Normal
[2018-04-30 06:16] LABS: Basophils % 0.2 % (0.1-2.0); Eosinophils # 0.2 K/mm3 (0.0-0.4); Eosinophils % 2.8 % (0.1-12.0); Hematocrit 29.5 % (37.0-47.0); Lymphocytes % 17.2 K/mm3 (10-50); Mean Corpuscular HGB Conc 30.4 g/dL (31.8-35.4); Mean Corpuscular Hemoglobin 28.6 pg (27.0-31.2); Mean Platelet Volume 7.9 fl (7.4-10.4); Monocytes # 0.2 K/mm3 (0.1-1.0); Monocytes % 4.4 % (1.7-9.3); Neutrophils # 4.2 K/mm3 (1.8-7.8); Neutrophils % 75.4 % (37.0-80.0); Platelet Count 187 K/mm3 (142-424); Red Blood Count 3.13 M/mm3 (4.20-5.40); Red Cell Distribution Width 15.5 % (11.5-17.5); White Blood Count 5.6 K/mm3 (4.8-10.8)
[2018-04-30 06:53] LABS: Calcium 8.4 mg/dL (8.5-10.1)
[2018-04-30 07:18] LABS: Anion Gap 13.1 mEq/L (5-15); Potassium 4.1 mmoL/L (3.5-5.1)
--- NOTE | 2018-04-30 08:22 | Progress Note ---
Internal Medicine - PN: Subj *Date: 04/30/18 *Time: 08:19 Interval history: More alert and oriented. Does not recall events of past 2 days. Less SOA. No chest pain. Eating OK. Has not been OOB. Almaraz still in place. Exam Vital signs and Labs for Last 24 Hours: Temp Pulse Resp BP Pulse Ox 98.9 F 94 H 16 141/57 95 04/30/18 07:25 04/30/18 07:25 04/30/18 07:25 04/30/18 07:25 04/30/18 08:00 Laboratory Results - last 24 hr 04/29/18 06:05: Total Counted 100, Neutrophils % (Manual) 92 H, Lymphocytes % ( Manual) 8 L, Platelet Estimate Normal, RBC Morphology Normal 04/29/18 11:14: POC Glucose 200 H 04/29/18 16:23: POC Glucose 161 H 04/29/18 20:49: POC Glucose 173 H 04/30/18 05:54: POC Glucose 136 H 04/30/18 05:55: WBC 5.6 D, RBC 3.13 L, Hgb 9.0 L, Hct 29.5 L, MCV 94.0, MCH 28.6, MCHC 30.4 L, RDW 15.5, Plt Count 187, MPV 7.9, Neut % (Auto) 75.4, Lymph % (Auto) 17.2, [place] % (Auto) 4.4, Eos % (Auto) 2.8, Baso % (Auto) 0.2, Neut # ( Auto) 4.2, Lymph # (Auto) 1.0, [place] # (Auto) 0.2, Eos # (Auto) 0.2, Baso # (Auto ) 0.0 04/30/18 05:55: Sodium 146 H, Potassium 4.1, Chloride 113 H, Carbon Dioxide 24, Anion Gap 13.1, BUN 74 H, Creatinine 6.45 H, Estimated Creat Clear 7, Estimated GFR 6 L*, Est GFR ( Amer) 7 L*, Glucose 133 H D, Calcium 8.4 L I & O for Last 24 hours: Intake & Output 04/27/18 04/28/18 04/29/18 04/30/18 11:59 11:59 11:59 11:59 Intake Total 150 / 150 70 / 70 Output Total 1725 / 1725 2099 / 2099 Balance -1575 / -1575 -2029 / Weight 156 lb 155 lb 7 oz - Constitutional no acute distress Comments: alert and oriented - *Routine Respiratory Exam Comments: clear anteriorly, diminished in bases - *Routine Cardiovascular Exam Present: RRR, murmur (Grade 2-3) - *Routine Abdominal Exam Present: soft. Absent: tenderness, distended - *Routine Extremities Exam Absent: edema Assessment and Plan (1) CHF (congestive heart failure) Current visit: Yes Status: Acute Qualifiers: Heart failure type: unspecified Heart failure chronicity: acute on chronic Qualified Code(s): I50.9 - Heart failure, unspecified Category: Medical Code(s): I50.9 - Heart failure, unspecified (2) Altered mental status Current visit: Yes Status: Acute Category: Medical Code(s): R41.82 - Altered mental status, unspecified (3) Chronic renal disease, stage 5, glomerular filtration rate (GFR) less than or equal to 15 mL/min/1.73 square meter Current visit: Yes Status: Acute Category: Medical Code(s): N18.5 - Chronic kidney disease, stage 5 (4) Elevated troponin Current visit: Yes Status: Acute Category: Medical Code(s): R74.8 - Abnormal levels of other serum enzymes (5) Chronic uremia Current visit: No Status: Acute Category: Medical Code(s): N18.9 - Chronic kidney disease, unspecified (6) Anemia in end-stage renal disease Current visit: Yes Status: Acute Category: Medical Code(s): N18.6 - End stage renal disease; D63.1 - Anemia in chronic kidney disease - Assessment and plan all Dx Assessment and Plan for all problems:: Remove Almaraz, repeat CXR, PT eval.
--- NOTE | 2018-05-01 08:23 | Progress Note ---
<Monique Hannon - Last Filed: 05/01/18 08:21> Internal Medicine - PN: Subj *Date: 05/01/18 *Time: 08:21 Interval history: Pt states she does not feel well today due to increased shortness of breath. She states she slept off and on because she was short of air. She denies any pain today. She did eat breakfast. Exam Vital signs and Labs for Last 24 Hours: Temp Pulse Resp BP Pulse Ox 98.8 F 84 20 138/53 94 L 05/01/18 04:00 05/01/18 06:37 05/01/18 04:00 05/01/18 04:00 05/01/18 06:37 Laboratory Results - last 24 hr 04/30/18 11:42: POC Glucose 185 H 04/30/18 16:48: POC Glucose 169 H 04/30/18 21:21: POC Glucose 161 H 05/01/18 05:32: POC Glucose 140 H I & O for Last 24 hours: Intake & Output 04/28/18 04/29/18 04/30/18 05/01/18 11:59 11:59 11:59 11:59 Intake Total 150 / 150 70 / 70 740 / 740 Output Total 1725 / 1725 2100 / 2100 760 / 760 Balance -1575 / -1575 -2030 / -2030 -20 / -20 Weight 156 lb 155 lb 7 oz 152 lb 8 oz Microbiology Reports for the Last 24 Hours: Microbiology 04/28/18 17:43 Blood Blood Culture - Preliminary NO GROWTH AFTER 48 HOURS 04/28/18 17:43 Blood Blood Culture - Preliminary NO GROWTH AFTER 48 HOURS - Constitutional no acute distress - *Routine Respiratory Exam Present: rales (bibasilar), diminished air movement - *Routine Cardiovascular Exam Present: RRR - *Routine Abdominal Exam Present: soft, normoactive bowel sounds. Absent: tenderness - *Routine Extremities Exam Absent: edema Assessment and Plan (1) CHF (congestive heart failure) Current visit: Yes Status: Acute Qualifiers: Heart failure type: unspecified Heart failure chronicity: acute on chronic Qualified Code(s): I50.9 - Heart failure, unspecified Category: Medical Code(s): I50.9 - Heart failure, unspecified (2) Altered mental status Current visit: Yes Status: Acute Category: Medical Code(s): R41.82 - Altered mental status, unspecified (3) Chronic renal disease, stage 5, glomerular filtration rate (GFR) less than or equal to 15 mL/min/1.73 square meter Current visit: Yes Status: Acute Category: Medical Code(s): N18.5 - Chronic kidney disease, stage 5 (4) Elevated troponin Current visit: Yes Status: Acute Category: Medical Code(s): R74.8 - Abnormal levels of other serum enzymes (5) Chronic uremia Current visit: No Status: Acute Category: Medical Code(s): N18.9 - Chronic kidney disease, unspecified (6) Anemia in end-stage renal disease Current visit: Yes Status: Acute Category: Medical Code(s): N18.6 - End stage renal disease; D63.1 - Anemia in chronic kidney disease - Assessment and plan all Dx Assessment and Plan for all problems:: Will discuss further care with Dr. Handy. <Joe Handy - Last Filed: 05/01/18 08:58> Internal Medicine - PN: Subj *Date: 05/01/18 *Time: 08:56 Exam Vital signs and Labs for Last 24 Hours: Temp Pulse Resp BP Pulse Ox 98.4 F 80 18 141/55 97 05/01/18 08:00 05/01/18 08:00 05/01/18 08:00 05/01/18 08:00 05/01/18 08:00 Laboratory Results - last 24 hr 04/30/18 11:42: POC Glucose 185 H 04/30/18 16:48: POC Glucose 169 H 04/30/18 21:21: POC Glucose 161 H 05/01/18 05:32: POC Glucose 140 H I & O for Last 24 hours: Intake & Output 04/28/18 04/29/18 04/30/18 05/01/18 11:59 11:59 11:59 11:59 Intake Total 150 / 150 70 / 70 980 / 980 Output Total 1725 / 1725 2100 / 2100 760 / 760 Balance -1575 / -1575 -2029 / -2029 220 / 220 Weight 156 lb 155 lb 7 oz 152 lb 8 oz Microbiology Reports for the Last 24 Hours: Microbiology 04/28/18 17:43 Blood Blood Culture - Preliminary NO GROWTH AFTER 48 HOURS 07/10/18 17:43 Blood Blood Culture - Preliminary NO GROWTH AFTER 48 HOURS Assessment and Plan (1) CHF (congestive heart failure) Current visit: Yes Status: Acute Qualifiers: Heart failure type: unspecified Heart failure chronicity: acute on chronic Qualified Code(s): I50.9 - Heart failure, unspecified Category: Medical Code(s): I50.9 - Heart failure, unspecified (2) Altered mental status Current visit: Yes Status: Acute Category: Medical Code(s): R41.82 - Altered mental status, unspecified (3) Chronic renal disease, stage 5, glomerular filtration rate (GFR) less than or equal to 15 mL/min/1.73 square meter Current visit: Yes Status: Acute Category: Medical Code(s): N18.5 - Chronic kidney disease, stage 5 (4) Elevated troponin Current visit: Yes Status: Acute Category: Medical Code(s): R74.8 - Abnormal levels of other serum enzymes (5) Chronic uremia Current visit: No Status: Acute Category: Medical Code(s): N18.9 - Chronic kidney disease, unspecified (6) Anemia in end-stage renal disease Current visit: Yes Status: Acute Category: Medical Code(s): N18.6 - End stage renal disease; D63.1 - Anemia in chronic kidney disease - Assessment and plan all Dx Assessment and Plan for all problems:: Patient seen and examined. SHe is alert and oriented. Subjectively still feels SOA. No cough or chest pain. Poor urine output as expected. She is stable to return to [facility] under Hospice Care. Will continue to try to diurese but prognosis is poor due to progressive renal failure.
[2018-05-01 08:28] VITALS: BP 141/55
--- NOTE | 2018-05-01 08:54 | Discharge Summary ---
General - General Admission date:: 04/28/18 <Joe Handy - 05/01/18 13:22> 04/28/18 <Monique Hannon - 05/01/18 08:55> Discharge date: 05/01/18 <Monique Hannon - 05/01/18 08:55> HPI HPI: Ms. Espinoza is an 87yo female patient of [facility] with a hx of CHF, blood transfusions for chronic anemia, DM, HTN, HLP, and GERD who became increasingly SOB during a transfusion yesterday. She told the ER physician she had had a dry cough for the last several days, no chest pain, no palpitations, no leg pain. She arrived in the ER a little SOB with some wheezing. The transfusion RN stated the patient had Lasix IV [employer] and had not had any UOP. She had a neb at the CT before arrival to the ER yesterday. Today the patient is very fatigued and slightly confused. She denies any pain. She states she is no longer short of breath. She does say she is tired. Further important to her history is that she is enrolled in Hospice due to end- stage renal failure which is the basis of her chronic anemia. Her most recent Hgb at [facility] was 7.2 and she requested a blood transfusion but she was getting weak and not getting around very well. <Monique Hannon - 05/01/18 08:55> Hospital Course Hospital Course: Patient's initial chest x-ray showed bilateral pleural effusions and a possible pneumonia. Clinically she had CHF rather than pneumonia. She was given Lasix without much urine output, however she did have improvement in her shortness of breath and her CXR improved. She became much more alert and awake. She was able to eat. She was stable to be discharged back to the correction on an increased dose of Lasix. Hospice will continue to follow the patient. <Monique Hannon - 05/01/18 08:55> Objective Vital signs: Temp Pulse Resp BP Pulse Ox 98.4 F 80 18 141/55 97 05/01/18 08:00 05/01/18 08:00 05/01/18 08:00 05/01/18 08:00 05/01/18 08:00 <Joe Handy - 05/01/18 13:22> Temp Pulse Resp BP Pulse Ox 98.4 F 80 18 141/55 97 05/01/18 08:00 05/01/18 08:00 05/01/18 08:00 05/01/18 08:00 05/01/18 08:00 <Monique Hannon - 05/01/18 08:55> Narrative: - Constitutional no acute distress (very fatigued and slightly confused) - *Routine HEENT Exam Head: Present: atraumatic Eye: Present: EOMI ENT: Present: mucous membranes dry - *Routine Neck Exam Present: supple, full ROM - *Routine Respiratory Exam Present: crackles (faint bibasilar rales) - *Routine Cardiovascular Exam Present: RRR - *Routine Abdominal Exam Present: soft, normoactive bowel sounds. Absent: tenderness - *Routine Extremities Exam Present: edema (trace) - *Routine Skin Exam Present: pallor - *Routine Neurological Exam Present: altered mental status <Monique Hannon - 05/01/18 08:55> Results Labs on day of discharge: Labs from last 24 hours 05/01/18 04/30/18 04/30/18 05:32 21:21 16:48 POC Glucose 140 H 161 H 169 H Preliminary micro results at discharge 04/28/18 17:43 Blood Culture - Preliminary Blood NO GROWTH AFTER 48 HOURS 04/28/18 17:43 Blood Culture - Preliminary Blood NO GROWTH AFTER 48 HOURS <Joe Handy - 05/01/18 13:22> Labs from last 24 hours 05/01/18 04/30/18 04/30/18 05:32 21:21 16:48 POC Glucose 140 H 161 H 169 H 04/30/18 11:42 POC Glucose 185 H Preliminary micro results at discharge 04/28/18 17:43 Blood Culture - Preliminary Blood NO GROWTH AFTER 48 HOURS 04/28/18 17:43 Blood Culture - Preliminary Blood NO GROWTH AFTER 48 HOURS <Monique Hannon - 05/01/18 08:55> DS: Diagnosis - Discharge Diagnosis (1) CHF (congestive heart failure) Status: Acute (2) Altered mental status Status: Acute (3) Chronic renal disease, stage 5, glomerular filtration rate (GFR) less than or equal to 15 mL/min/1.73 square meter Status: Acute (4) Elevated troponin Status: Acute (5) Chronic uremia Status: Acute (6) Anemia in end-stage renal disease Status: Acute <Monique Hanonn - 05/01/18 08:51> (1) CHF (congestive heart failure) Status: Acute (2) Altered mental status Status: Acute (3) Chronic renal disease, stage 5, glomerular filtration rate (GFR) less than or equal to 15 mL/min/1.73 square meter Status: Acute (4) Elevated troponin Status: Acute (5) Chronic uremia Status: Acute (6) Anemia in end-stage renal disease Status: Acute <Joe Handy - 05/01/18 13:22> Discharge Plan - Patient Discharge Instructions ACTIVITY: Continue current activity <Monique Hannon - 05/01/18 08:55> DIET: diabetic diet <Monique Hannon - 05/01/18 08:55> Additional Instructions: PT evaluation <Joe Handy - 05/01/18 13: 22> Patient Instructions: DI for Kidney Failure, DI for Heart Failure <Joe Handy - 05/01/18 13:22> Forms: <Joe Handy - 05/01/18 13:22> - Follow up Plan Follow up with: Joe Handy MD [Primary Care Provider] - < Joe Handy - 05/01/18 13:22> Disposition: [facility] <Joe Handy - 05/01/18 13:22> Home Medications: Home Medications Medication Instructions Recorded Confirmed Type Acetaminophen [Acetaminophen 325mg 650 mg PO Q4HP PRN 11/21/17 04/29/18 History tab] Atorvastatin Calcium [Atorvastatin 80 mg PO HS 11/21/17 04/29/18 History 80mg Tab] Benzonatate [Tessalon Perle 100mg 200 mg PO Q6HP PRN 11/21/17 04/29/18 History Cap] Bisacodyl [Dulcolax 10mg Supp] 10 mg RC DAILYP PRN 11/21/17 04/29/18 History Docusate Sodium [Colace] 100 mg PO BID 11/21/17 04/29/18 History Doxazosin Mesylate [Doxazosin 1mg 1 mg PO DAILY 11/21/17 04/29/18 History Tab] Doxepin HCl [Sinequan 25mg capsule] 25 mg PO HS 11/21/17 04/29/18 History Hydralazine HCl [Hydralazine HCl 25 mg PO TID 11/21/17 04/29/18 History 25mg Tablet] Hydrocortisone Acetate [Anusol HC 30 mg RC TIDP PRN 11/21/17 04/29/18 History 30mg Supp] Insulin Aspart [Novolog] 0 unit SQ AC 11/21/17 04/29/18 History Isosorbide Dinitrate [Isordil] 40 mg PO BID 11/21/17 04/29/18 History Levothyroxine Sodium 25 mcg PO DAILY 11/21/17 04/29/18 History [Levothyroxine 25mcg (0.025mg) Tab] Multivitamin/Iron/Folic Acid 1 each PO DAILY 11/21/17 04/29/18 History [Centrum Complete Multivit Tab] Ondansetron HCl [Zofran 4mg Tab] 4 mg PO TIDP PRN 11/21/17 04/29/18 History Oxycodone HCl [OxyIR 5mg tablet] 2.5 mg PO Q6HP PRN 11/21/17 04/29/18 History Pantoprazole Sodium [Protonix 40mg 40 mg PO DAILY 11/21/17 04/29/18 History tablet] Pregabalin [Pregabalin 50mg 50 mg PO HS 11/21/17 04/29/18 History Capsule] cloNIDine HCl [Catapres] 0.1 mg PO TID 11/21/17 04/29/18 History guaiFENesin [Robitussin 200mg/10mL 200 mg PO Q4HP PRN 11/21/17 04/29/18 History Syrup Udc] metOLazone [metOLazone 2.5mg 2.5 mg PO Q48H 11/21/17 04/29/18 History Tablet] Amlodipine Besylate [Norvasc 5mg 5 mg PO BID 04/29/18 04/29/18 History tablet] Carboxymethylcellulose Sodium 1 drop OP Q2HP PRN 04/29/18 04/29/18 History [Thera Tears] Dextrose [Glutose 15] 37.5 gm PO DAILYP PRN 04/29/18 04/29/18 History Insulin Degludec [Tresiba 6 unit SQ DAILY 04/29/18 04/29/18 History Flextouch U-200] Ipratropium/Albuterol Sulfate 3 ml IH TID 04/29/18 04/29/18 History [Iprat-Albut 0.5-3(2.5) mg/3 ml] Lactulose [Lactulose 10gm/15ml 30 ml PO DAILY 04/29/18 04/29/18 History Oral Soln] Mag Carb/Aluminum Hydrox/Algin 30 ml PO Q6HP PRN 04/29/18 04/29/18 History [Acid Gone Antacid Liquid] Magnesium Hydroxide [Milk of 400 mg PO DAILYP PRN 04/29/18 04/29/18 History Magnesia] Metoprolol Succinate 25 mg PO BID 04/29/18 04/29/18 History Venlafaxine HCl [Effexor XR 75mg 75 mg PO HS 04/29/18 04/29/18 History capsule] hydrOXYzine HCl [Hydroxyzine HCl] 10 mg PO Q6HP PRN 04/29/18 04/29/18 History <Joe Handy - 05/01/18 13:22> Prescriptions/Medication Reconciliation: New Furosemide [Lasix 40mg tab] 40 mg PO DAILY #30 tab Continue Levothyroxine Sodium [Levothyroxine 25mcg (0.025mg) Tab] 25 mcg PO DAILY Bisacodyl [Dulcolax 10mg Supp] 10 mg RC DAILYP PRN PRN Reason: Constipation Pregabalin [Pregabalin 50mg Capsule] 50 mg PO HS Pantoprazole Sodium [Protonix 40mg tablet] 40 mg PO DAILY Oxycodone HCl [OxyIR 5mg tablet] 2.5 mg PO Q6HP PRN PRN Reason: pain Multivitamin/Iron/Folic Acid [Centrum Complete Multivit Tab] 1 each PO DAILY metOLazone [metOLazone 2.5mg Tablet] 2.5 mg PO Q48H Isosorbide Dinitrate [Isordil] 40 mg PO BID Insulin Aspart [Novolog] 0 unit SQ AC Hydrocortisone Acetate [Anusol HC 30mg Supp] 30 mg RC TIDP PRN PRN Reason: Hemorrhoids Hydralazine HCl [Hydralazine HCl 25mg Tablet] 25 mg PO TID guaiFENesin [Robitussin 200mg/10mL Syrup Udc] 200 mg PO Q4HP PRN PRN Reason: Cough Doxepin HCl [Sinequan 25mg capsule] 25 mg PO HS Doxazosin Mesylate [Doxazosin 1mg Tab] 1 mg PO DAILY cloNIDine HCl [Catapres] 0.1 mg PO TID Benzonatate [Tessalon Perle 100mg Cap] 200 mg PO Q6HP PRN PRN Reason: Cough Atorvastatin Calcium [Atorvastatin 80mg Tab] 80 mg PO HS Ipratropium/Albuterol Sulfate [Iprat-Albut 0.5-3(2.5) mg/3 ml] 3 ml IH TID Insulin Degludec [Tresiba Flextouch U-200] 6 unit SQ DAILY Dextrose [Glutose 15] 37.5 gm PO DAILYP PRN PRN Reason: HYPOGLYCEMIA Carboxymethylcellulose Sodium [Thera Tears] 1 drop OP Q2HP PRN PRN Reason: Dry Eye(S) Metoprolol Succinate 25 mg PO BID Lactulose [Lactulose 10gm/15ml Oral Soln] 30 ml PO DAILY hydrOXYzine HCl [Hydroxyzine HCl] 10 mg PO Q6HP PRN PRN Reason: Itching Amlodipine Besylate [Norvasc 5mg tablet] 5 mg PO BID Acetaminophen [Acetaminophen 325mg tab] 650 mg PO Q4HP PRN PRN Reason: PAIN Ondansetron HCl [Zofran 4mg Tab] 4 mg PO TIDP PRN PRN Reason: nausea/vomiting Docusate Sodium [Colace] 100 mg PO BID Venlafaxine HCl [Effexor XR 75mg capsule] 75 mg PO HS Magnesium Hydroxide [Milk of Magnesia] 400 mg PO DAILYP PRN PRN Reason: Constipation Mag Carb/Aluminum Hydrox/Algin [Acid Gone Antacid Liquid] 30 ml PO Q6HP PRN PRN Reason: Constipation Discontinued Furosemide [Lasix 20mg tab] 20 mg PO Q48H <Joe Handy - 13:22> - Additional Information Additional Information: Concur with above plan for discharge. Will arrange for PT <Joe Handy - 05/01/18 13:22>
== END 2018-05-01 11:52 | disposition hospice, inpatient (51) ==
LOC: ER 16:44 → 2ND 16:44 → OBSVTOIN 19:35 → 2ND 19:38
PROVIDERS: ADMIT Family Medicine; ATTEND Family Medicine